=== PATIENT | female | born 1950 | race Caucasian/White ===

== ENCOUNTER 2020-02-03 05:41 | Day surgery (SDC) | payer OTHER ==
[2020-02-01 12:41] VITALS: BP 117/61
[2020-02-01 12:46] LABS: BASOPHILS % (AUTO) 0.3 % (0.0-5.0); EOSINOPHILS % (AUTO) 1.7 % (0.0-8.0); LYMPHOCYTES % (AUTO) 24.1 % (21.0-51.0); MEAN CORPUSCULAR HEMOGLOBIN 28.9 pg (27.0-33.0); MEAN CORPUSCULAR VOLUME 93.4 fL (79-99); MONOCYTES % (AUTO) 6.1 % (3.0-13.0); NEUTROPHILS % (AUTO) 67.2 % (40.0-77.0); PLATELET COUNT (AUTO) 179 K/uL (130-400); RED BLOOD CELL COUNT(AUTO) 3.32 MIL/uL (4.00-5.50); RED CELL DISTRIBUTION WIDTH 16.2 % (11.0-15.5); WHITE BLOOD COUNT (AUTO) 6.4 K/uL (4.8-10.8)
[2020-02-01 12:59] LABS: POTASSIUM 3.6 mmol/L (3.5-5.1)
--- NOTE | 2020-02-02 11:08 | NUR ---
Notified Doctor Ned of h/h 9.6/31.0, okay to proceed however new order for pt/inr for phan morning.
[~2020-02-03] VITALS: Ht 165.1 cm; Wt 94.8 kg
[2020-02-03] VITALS (9 sets, daily range): BP systolic 104–131; BP diastolic 46–69
[~2020-02-03 05:41] MED LIST: ALBU6.7H9 IH; APIX5TAB PO; ATOR20TA65 PO; BENZ-51 PO; DIPH25 PO; ESZO3TAB39 PO; FLUO40CA49 PO; METF-444 PO; METO25TA6 PO; MONT10TA26 PO; OMEP20CA12 PO; POTASSIUM CHL PO; ROPI3TAB5 PO; SITA100T12 PO; SODIUM CHLORIDE 0.9% 500ML 500 ML IV SCH; SOTA120T PO; TORS20TA4 PO; TRAM50TA4 PO; UMEC1DIS IH; VERA360C2 PO
--- NOTE | 2020-02-03 06:15 | NUR ---
PRE OP PT ARRIVED AMBULATORY IN NO DISTRESS. PT CONNECTED TO FRIT MAKER, CALL LIGHT WITH IN REACH AND BED IN LOWEST POSITION
[2020-02-03] MEDS ORDERED: SODIUM CHLORIDE 0.9% 1000ML 1,000 ML IV ONE (06:25)
[2020-02-03 06:43] LABS: INR 0.97 (0.85-1.15); PROTHROMBIN TIME 10.5 SEC (9.6-11.6)
[2020-02-03] MEDS ORDERED: MIDAZOLAM HCL 1 MG/ML 2ML VIAL ONE ×2 (07:34→08:29)
[2020-02-03] MEDS ORDERED: HEPARIN SODIUM 1000UNIT/ML 10ML VIAL ONE (07:34)
[2020-02-03] MEDS ORDERED: MEPERIDINE-PF 25 MG/ML SYG ONE ×2 (07:35→08:29)
[2020-02-03] MEDS ORDERED: LIDOCAINE HCL 2% 20ML ONE (07:35)
--- NOTE | 2020-02-03 07:45 | NUR ---
TRANSFER PT TAKEN TO SAFETY COUNCIL DIRECTOR VIA BED BY RADHA MCKEON. PT IN NO DISTRESS.
--- NOTE | 2020-02-03 10:27 | NUR ---
TRANSFER PT TAKEN TO LINE SERVICE PERSON VIA BED BY RADHA MCKEON. PT IN NO DISTRESS. Addendum: 02/03/20 at 1044 by OLYA GRAVES RN RN WRONG PT
--- NOTE | 2020-02-03 12:03 | NUR ---
DISCHARGE INSTRUCTIONS INSTRUCTIONS GIVEN TO EX OVER THE PHONE. RELATIVE VOICED UNDERSTANDING
--- NOTE | 2020-02-03 12:40 | NUR ---
ACTIVITY PTS HOB RAISED. PT TOLERATED IT WELL. NO S/S OF BLEEDING NOTED TO RT GROIN
--- NOTE | 2020-02-03 13:00 | NUR ---
md dr dill informed of ekg and asked about eliquis. pt to start eliquis today and ok to discharge home
--- NOTE | 2020-02-03 13:15 | NUR ---
discharge pt taken out via w/c in no distress by jennifer oviedo. pt took belongings
== END 2020-02-03 13:15 | disposition home or self-care (01) ==
LOC: DAH 05:41
PROVIDERS: ATTEND Internal Medicine Cardiovascular Disease
DX: I48.0 Paroxysmal atrial fibrillation (principal); J44.9 Chronic obstructive pulmonary disease, unspecified; E78.5 Hyperlipidemia, unspecified; I11.0 Hypertensive heart disease with heart failure; I50.9 Heart failure, unspecified; E11.9 Type 2 diabetes mellitus without complications; Z79.4 Long term (current) use of insulin; Z79.899 Other long term (current) drug therapy; Z79.01 Long term (current) use of anticoagulants; Z95.0 Presence of cardiac pacemaker; Z88.0 Allergy status to penicillin; Z87.891 Personal history of nicotine dependence
CPT/HCPCS: 36415 ×2; 80048; 82948 ×2; 85025; 85610; 93005; 93650; A4215; A4216; A4221; A4222; A4223 ×3; A4335; A4554; A4606; A4663; C1732 ×2; C1894; J1644; J2175 ×2; J2250 ×2; J3490; J7030; 99156; 99157